=== PATIENT | male | born 1980 | race African-American/Black ===

== ENCOUNTER 2022-07-25 20:23 | Emergency (ER) | payer OTHER ==
[2022-07-25] MEDS ORDERED: HYDROCODONE/APAP 10/325 TAB ONE (21:47)
--- NOTE | 2022-07-25 22:52 | RAD REPORT ---
EXAM DESCRIPTION: RAD - Shoulder Right 2 View - 07/25/2022 10:38 pm CLINICAL HISTORY: PAIN COMPARISON: No comparisons FINDINGS/IMPRESSION: No acute fracture. No malalignment. No significant focal degenerative changes.
--- NOTE | 2022-07-25 23:36 | ER ---
Nurse's Notes [facility] Name: Kelvin Fan Age: 42 yrs Sex: Male : 1980 Arrival Date: 07/25/2022 Time: 20:53 Bed 11 Private MD: Diagnosis: Pain in right shoulder Presentation: 07/25 21:04 Chief complaint: Patient states: I was fishing and I slipped [place] a [place] and came kd3 down wrong on my right side. I fell down on my right shoulder. Coronavirus screen: Vaccine status: Patient reports receiving the 2nd dose of the covid vaccine. Ebola Screen: No symptoms or risks identified at this time. Initial Sepsis Screen: Does the patient meet any 2 criteria? No. Patient's initial sepsis screen is negative. Does the patient have a suspected source of infection? No. Patient's initial sepsis screen is negative. Risk Assessment: Do you want to hurt yourself or someone else? Patient reports no desire to harm self or others. Onset of symptoms was July 25, 2022. 21:04 Method Of Arrival: Ambulatory kd3 21:04 Acuity: SANDRITA 3 kd3 Triage Assessment: 21:06 General: Appears uncomfortable, Behavior is calm, cooperative. Pain: Complains of pain kd3 in posterior aspect of right shoulder. Neuro: Level of Consciousness is awake, alert, obeys commands, Oriented to person, place, time, situation. Respiratory: Airway is patent Trachea midline Respiratory effort is even, unlabored, Respiratory pattern is regular, symmetrical. Musculoskeletal: Reports pain in anterior aspect of right shoulder, right axilla and posterior aspect of right shoulder. Injury Description: fell on right shoulder. Historical: - Allergies: 21:06 No Known Allergies; kd3 - Home Meds: 21:06 None [Active]; kd3 - Immunization history:: Adult Immunizations up to date. - Social history:: Smoking status: Patient reports the use of cigarette tobacco products, smokes one-half pack cigarettes per day. Screenin:[address] [facility] ED Fall Risk Assessment (Adult) History of falling in the last 3 months, kd3 including since admission Yes- single mechanical fall (1 pt) Confusion or Disorientation No (0 pts) Intoxicated or Sedated No (0 pts) Impaired Gait No (0 pts) Mobility Assist Device Used No (0 pt) Altered Elimination No (0 pt) Score/Fall Risk Level 0 - 2 = Low Risk. Humpty Dumpty Scale Fall Assessment Tool (age< 18yrs) Age 13 years and above (1 pt) Gender Male (2 pts) Diagnosis Other diagnosis (1 pt) Cognitive Impairments Oriented to own ability (1 pt) Environmental Factors Patient placed in bed (2 pts) Response to Surgery/Sedation/Anesthesia More than 48 hours/ None (1 pt) Medication Usage Other medications/ None (1 pt) Fall Risk Score/ Level Low Fall Risk: </= 11 points. Abuse screen: Denies threats or abuse. Denies injuries from another. Nutritional screening: No deficits noted. Tuberculosis screening: No symptoms or risk factors identified. Fall Risk No fall in past 12 months (0 pts). No secondary diagnosis (0 pts). No IV (0 pts). Ambulatory Aid- None/Bed Rest/Nurse Assist (0 pts). Gait- Normal/Bed Rest/Wheelchair (0 pts) Mental Status- Oriented to own ability (0 pts). Total Collier Fall Scale indicates No Risk (0-24 pts). Vital Signs: 21:04 BP 141 / 97; Pulse 101; Resp 17; Temp 97.9; Pulse Ox 100% on R/A; Weight 104.33 kg; kd3 Height 6 ft. (182.88 cm); Pain 10/10; 23:52 BP 143 / 84; Pulse 98; Resp 17; Pulse Ox 100% on R/A; kd3 21:04 Body Mass Index 31.19 (104.33 kg, 182.88 cm) kd3 ED Course: 20:53 Patient arrived in ED. dt4 21:06 Triage completed. kd3 21:06 Arm band placed on left wrist. kd3 21:10 Evens Malloy NP is PHCP. pm1 21:10 Herbie Hendrickson MD is Attending Physician. pm1 21:45 Mendy Gauthier, HENRIK is Primary Nurse. kd3 22:13 Patient has correct armband on for positive identification. Bed in low position. Call kd3 light in reach. 22:13 No provider procedures requiring assistance completed. kd3 22:40 Shoulder Right (2 View) XRAY In Process Unspecified. EDMS 23:35 Bran Carlson MD is Referral Physician. pm1 23:52 Patient did not have IV access during this emergency room visit. kd3 Administered Medications: 21:48 Drug: Golden (HYDROcodone-acetaminophen) 10 mg-325 mg 1 tabs Route: PO; kd3 22:12 Follow up: Response: No adverse reaction; Pain is decreased kd3 Medication: 22:14 VIS not applicable for this client. kd3 Outcome: 23:35 Discharge ordered by MD. pm1 23:52 Discharged to home ambulatory. kd3 23:52 Condition: stable 23:52 Discharge instructions given to patient, family, Instructed on discharge instructions, follow up and referral plans. medication usage, Demonstrated understanding of instructions, follow-up care, medications, Prescriptions given X 1. 23:52 Patient left the ED. kd3 Signatures: Dispatcher [employer] EDMS Evens Malloy NP SUMMER CAMP COUNSELOR pm1 Mendy Gauthier, RN RN kd3 Tamia Salazar dt4
--- NOTE | 2022-07-25 23:36 | EDPHYS ---
Physician Documentation [facility] Name: Kelvin Fan Age: 42 yrs Sex: Male : 1980 Arrival Date: 07/25/2022 Time: 20:53 Bed 11 Private MD: ED Physician Herbie Hendrickson HPI: 07/25 21:31 This 42 yrs old Black Male presents to ER via Ambulatory with complaints of Right pm1 shoulder pain. 21:31 The patient or guardian complains of pain, that is acute. The complaints affect the pm1 anterior aspect of right shoulder. Context: The problem was sustained outdoors, resulted from Slipped on [place] on the dock. Onset: The symptoms/episode began/occurred just prior to arrival. Treatment prior to arrival includes: no previous treatment. Modifying factors: The symptoms are alleviated by remaining still, the symptoms are aggravated by movement. Associated signs and symptoms: Pertinent negatives: Head injury LOC, neck pain. 21:31 Severity of symptoms: in the emergency department the symptoms are unchanged. The pm1 patient has not experienced similar symptoms in the past. The patient has not recently seen a physician. Patient was walking on the dark and slipped on green algae slime and landing on anterior section of right shoulder. Patient without any other injury to other locations. Negative for head injury, headache, LOC, neck pain. Patient reports pain with movement of right arm. Improved with keeping still. Historical: - Allergies: 21:06 No Known Allergies; kd3 - Home Meds: 21:06 None [Active]; kd3 - Immunization history:: Adult Immunizations up to date. - Social history:: Smoking status: Patient reports the use of cigarette tobacco products, smokes one-half pack cigarettes per day. ROS: 21:31 Constitutional: Negative for fever, chills, and weight loss, Neck: Negative for injury, pm1 pain, and swelling, Cardiovascular: Negative for chest pain, palpitations, and edema, Respiratory: Negative for shortness of breath, cough, wheezing, and pleuritic chest pain, Abdomen/GI: Negative for abdominal pain, nausea, vomiting, diarrhea, and constipation, Back: Negative for injury and pain. 21:31 Skin: Negative for injury, rash, and discoloration, Neuro: Negative for headache, weakness, numbness, tingling, and seizure. 21:31 MS/extremity: Positive for pain, of the anterior aspect of right shoulder, Negative for deformity. 21:31 All other systems are negative. Exam: 21:31 Constitutional: This is a well developed, well nourished patient who is awake, alert, pm1 and in no acute distress. Head/Face: Normocephalic, atraumatic. 21:31 Skin: Warm, dry with normal turgor. Normal color with no rashes, no lesions, and no evidence of cellulitis. 21:31 Eyes: Exam is negative for acute changes, Periorbital structures: no acute changes, Extraocular movements: no acute changes, Conjunctiva: no acute changes, no injection. 21:31 Cardiovascular: Exam negative for acute changes, Rate: normal, Rhythm: regular, Pulses: no pulse deficits are appreciated. 21:31 Respiratory: Exam negative for acute changes, respiratory distress, shortness of breath. 21:31 Musculoskeletal/extremity: Extremities: grossly normal except: noted in the anterior aspect of right shoulder: pain, tenderness, ROM: Pain present with lateral raise of right arm. Patient able to move his right arm anteriorly and posteriorly with minimal difficulty. 21:31 Neuro: Exam negative for acute changes, Orientation: is normal, Mentation: is normal, Motor: is normal, moves all fours. Vital Signs: 21:04 BP 141 / 97; Pulse 101; Resp 17; Temp 97.9; Pulse Ox 100% on R/A; Weight 104.33 kg; kd3 Height 6 ft. (182.88 cm); Pain 10/10; 23:52 BP 143 / 84; Pulse 98; Resp 17; Pulse Ox 100% on R/A; kd3 21:04 Body Mass Index 31.19 (104.33 kg, 182.88 cm) kd3 MDM: 21:13 Patient medically screened. irving 23:00 ED course: Patient able to move right arm FROM after pain medication. Patient refused pm1 NSAID IM. 23:34 Data reviewed: vital signs. Data interpreted: Pulse oximetry: on room air is 100 %. pm1 Interpretation: normal. Counseling: I had a detailed discussion with the patient and/or guardian regarding: the historical points, exam findings, and any diagnostic results supporting the discharge/admit diagnosis, radiology results, the need for outpatient follow up, a orthopedic surgeon, to return to the emergency department if symptoms worsen or persist or if there are any questions or concerns that arise at home. 23:34 ED course: Instructed patient on need to follow up with orthopedics for evaluation and pm1 treatment and possible MRI for definitive diagnosis if no further improvement in his pain. 07/25 21:29 Order name: Shoulder Right (2 View) XRAY; Complete Time: 22:59 pm1 07/25 21:29 Order name: Sling; Complete Time: 22:12 pm1 Administered Medications: 21:48 Drug: Lucas (HYDROcodone-acetaminophen) 10 mg-325 mg 1 tabs Route: PO; kd3 22:12 Follow up: Response: No adverse reaction; Pain is decreased kd3 Disposition Summary: 07/25/22 23:35 Discharge Ordered Location: Home pm1 Problem: new pm1 Symptoms: have improved pm1 Condition: Stable pm1 Diagnosis - Pain in right shoulder pm1 Followup: pm1 - With: Emergency Department - When: As needed - Reason: Worsening of condition Followup: pm1 - With: Bran Carlson MD - When: 2 - 3 days - Reason: Recheck today's complaints, Continuance of care, Re-evaluation by your physician Discharge Instructions: - Discharge Summary Sheet pm1 - Shoulder Pain pm1 - How to Use a Sling pm1 Forms: - Medication Reconciliation Form pm1 - Thank You Letter pm1 - Antibiotic Education pm1 - Prescription Opioid Use pm1 Prescriptions: - Tylenol-Codeine #3 300 mg-30 mg Oral - take 2 tablet by ORAL route every 6 hours As needed; 20 tablet; Refills: 0, pm1 Product Selection Permitted Signatures: Dispatcher [employer] EDMS Herbie Hendrickson MD MD cha Marinas, Patrick, NP OUTREACH ASSISTANT pm1 Mendy Gauthier, RN RN kd3
[2022-07-25 23:58] VITALS: TEMP 97.9; O2SAT 100
[2022-07-25 23:59] VITALS: BP 143/84
== END 2022-07-25 23:52 | disposition home or self-care (01) ==
LOC: ER 20:23
DX: M25.511 Pain in right shoulder (principal); F17.210 Nicotine dependence, cigarettes, uncomplicated
CPT/HCPCS: 99283